=== PATIENT | male | born 2005 | race Caucasian/White ===

== ENCOUNTER 2024-02-13 18:41 | Emergency (ER) | payer OTHER, SELFPAY ==
[2024-02-13 18:42] VITALS: BP 147/70; PULSE 66; RESP 16; TEMP 36.6; O2SAT 97
[2024-02-13] MEDS: Morphine 4 MG/ML Syringe IV (18:53)
--- NOTE | 2024-02-13 18:57 | ED.VIS.LOWEX ---
HPI History of Present Illness HPI Narrative: Patient presents with left knee injury that occurred today. Patient states he was hiking and he slipped in the mud. Patient states his knee twisted. Patient states he was having difficulty straightening his knee after the fall. Patient noted a deformity to the left knee. Patient denies any paresthesias or weakness. Patient describes his pain as sharp. Patient states it is worse with any movement. Patient denies any head injury or loss of consciousness. Patient denies any other injuries. Chief Complaint: Lower Extremity Injury Informant: patient Occured/Mechanism Mechanism/Context: Yes fall Onset/Context/Timing Onset: Today Context: Sudden Onset Timing: Continuous Quality of Pain: Sharp Location: Left knee Worsened by: Movement Relieved by: Rest Associated Symptoms Associated Symptoms: Negative for Parasthesia, Weakness or Loss of Funtion PFSH [facility] Medical History ACL (anterior cruciate ligament) tear Allergies Emotional problems Epileptic seizure ARIEL (generalized anxiety disorder) GERD (gastroesophageal reflux disease) MDD (major depressive disorder) Seizures Home Medications bupropion HCl 150 mg 24 hr tablet, extended release mg PO 01/03/24 [History Last Taken Unknown] lamotrigine 150 mg tablet mg PO 01/03/24 [History Last Taken Unknown] Allergy/AdvReac Type Severity Reaction Status Date / Time No Known Allergies Allergy Verified 01/03/24 13:41 Family History (Updated 01/03/24 @ 13:46 by Marie Elizabeth) Other Alcoholism Anxiety Arthritis Depression Hypertension Mental disorder Severe allergy Social History Smoking Status: Never smoker alcohol intake: current details: at social gatherings substance use type: other details: marked yes does not specify ROS ROS ED Constitutional Constitutional ED: Denies chills or fever(s) Eyes Eyes: Denies blurry vision or change in vision ENT ENT ED: Denies rhinorrhea or sore throat Cardiovascular Cardiovascular: Denies chest pain or palpitations Respiratory/Chest Respiratory/Chest: Denies cough or dyspnea Gastrointestinal Gastrointestinal: Denies nausea or vomiting Genitourinary Genitourinary ED: Denies dysuria or hematuria Musculoskeletal Musculoskeletal: Denies back pain or neck pain Integumentary Denies abscess or rash Neurologic Neurologic: Denies headache(s) or weakness Allergic/Immunologic Allergic/Immunologic ED: Denies mouth swelling or urticaria EXAM Physical Exam Const Vital Signs: 02/13/24 18:42 Temperature 98 F Temperature Source Temporal Pulse Rate 66 Respiratory Rate 16 Blood Pressure 147/70 H Blood Pressure Mean 95 Pulse Ox 97 Oxygen Delivery Method Room Air Positive well nourished and well developed General Appearance ED: well developed and NAD HEENT Reports moist mucous membranes Neck full ROM and supple Extremity Extremity Narrative: There is tenderness and deformity over the left patella. There is minimal tenderness posteriorly over the left knee. Range of motion was limited in all motions of the left knee secondary to pain. Sensation was intact to light touch bilaterally in the lower extremities. Strength is 5/5 bilaterally in the lower extremities. Posterior tibial pulses are equal bilaterally. Neuro oriented x3, CN's II-XII intact bilaterally, moves all extremities and no sensory deficits noted Sensorium / Orientation: alert Motor Exam: strength 5/5 throughout Psych mental status grossly normal MDM MDM MDM Narrative Medical decision making narrative: Clinically, patient has a patella dislocation. Patient was given a dose of morphine. The knee was extended and the patella was reduced. X-rays of the left knee will be obtained to assess for occult fracture and loose body. Radiography Diagnostic Testing: Clinical Impression(s) from Imaging Studies Knee X-Ray 02/13/24 19:00 IMPRESSION: Negative left knee x-rays. Electronically Signed: Bob Siddiqui MD at 19:31 EDT Reading Location ID and State: [facility] / [place] Tel , Service support , X-rays of the left knee were obtained. There are 2 views. On my independent interpretation, there is no acute fracture or dislocation noted. Radiologist also interpreted the x-rays and agrees. Treatment and Re-Evaluation Narrative: Patient was advised of his findings. Patient was given a knee immobilizer. Patient was instructed to ice and elevate the left knee. Patient was instructed to take ibuprofen or Tylenol as needed for pain. Patient was instructed to follow-up with his primary care physician in 5 to 7 days. Patient understood and was agreeable with the plan. All questions were answered. Discharge Plan Triage Chief Complaint: Lower Extremity Injury ED Provider: Norm Dallas Dx/Rx/DC Orders Clinical Impression: Fall, Dislocation of patella, left, closed Instructions: ED Patellar Dislocation/Subluxation Prescriptions: No Action lamotrigine 150 mg tablet PO bupropion HCl 150 mg tablet extended release 24 hr PO Primary Care Provider: Care Physician,No Primary Referrals: Kashif Lubin MD [Med Staff - Principal Clerk] - 5-7 Days Care Physician,No Primary [Primary Care Provider] - Disposition Disposition: Home, Self Care
--- NOTE | 2024-02-13 19:00 | RAD_ITS ---
EXAM: XR LEFT KNEE, 1 OR 2 VIEWS CLINICAL INDICATION: Injury/Pain TECHNIQUE: Frontal and/or lateral views of the left knee. COMPARISON: No relevant prior studies available. FINDINGS: BONES/JOINTS: Unremarkable. No acute fracture. No subluxation. Normal alignment. Preservation of the joint space. No sclerotic or destructive changes observed. SOFT TISSUES: Unremarkable. No soft tissue swelling or gas. No radiopaque foreign body. RAD/Knee 1 or 2 Views IMPRESSION: Negative left knee x-rays. Electronically Signed: Bob Siddiqui MD at 19:31 EDT ,
[2024-02-13 20:02] VITALS: BP 129/74; PULSE 65; RESP 16; TEMP 36.3; O2SAT 99
== END 2024-02-13 20:03 | disposition home or self-care (01) ==
LOC: ED 19:26
PROVIDERS: Emergency Provider Emergency Medicine; Visit Provider Emergency Medicine
DX: S83.005A Unspecified dislocation of left patella, initial encounter (principal); W18.39XA Other fall on same level, initial encounter; Y93.01 Activity, walking, marching and hiking; F41.1 Generalized anxiety disorder; Z79.899 Other long term (current) drug therapy
CPT/HCPCS: 27560; 73560; 96374; 99284; A4216

== ENCOUNTER 2025-02-10 18:00 | Outpatient (RCR) | payer OTHER, SELFPAY ==
--- NOTE | 2024-11-20 15:02 | HP.PTEVAL ---
Patient's Visit Information Visit Information Visit Information: ADALBERTO HOLLIS is a 18 year old M referred to Physical Therapy by BEVERLY MCGREGOR with a diagnosis of L knee trocheoplasty with MPFL reconstruction, DOS: 10/23/24. Date of Evaluation: 11/20/24 Physical Therapist: Corona Ceja DPT Visit Plan Frequency: 1-2x /Week Duration: 12 weeks Plan: 1) quad, HS, glute strengthening 2) once able to complete SLR without quad lag, open brace with gait. After 2 weeks of this wean from brace. 3) progress L knee ROM to 0-0-120deg. Pt. only able to come x1 per week currently. Progress HEP with each visit as able. Further reinforce importance of HEP consistency. Use protocol to progress as able. HEP AT IE: quad sets , SLR with brace, TKE with BTB, chair squats, heel slides with strap Subjective Subjective: Pt. is here today for his initial evaluation with diagnosis of S/P L knee trocheoplasty with MPFL reconstruction, DOS: 10/23/24. Pt. arrives with brace locked in extension and using 1 crutch. Pt. 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 He denies N/T in either LE, no calf pain, or changes in vision. No fever noted. Pt. is a [employer] student and is here for the semester. He reports starting his PT back home, doing initial strengthening and ROM. He reports however since going to college that he has neglected his exercises. 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 Pt. reports still having marked quad weakness. Pt. is hopeful to increase his strength and ROM in order to get back to all recreational and work activities without limitations. pt. is walking on campus with brace locked and with 1 crutch. Pt. is sleeping well without issues. Pain L knee: Pain Intensity (Out of 10): 2 Pain Intensity Range: 0 and 4 Objective Objective: POSTURE: Pt. has increased wt. shift to R side in stance. Pt. has normal iliac crest heights. PALPATION: Pt. has normal healing incision. Pt. has steri strips in place still, trimming back as they fray. NEURO: Pt. has normal sensation and normal achilles DTR. ROM: 0-0-99deg. Pt. reports tightness at limiting factor. Mild knee pain noted. Pt. has full extension no restrictions noted. MMT: LLE: Pt. has a fair quad set, unable to complete SLR without brace. He is able to complete one with brace on, but has marked lag (uses brace to stabilize) GAIT: Pt. ambulates with TROM brace with good stability. With out brace he has slight knee flexion and marked antalgic pattern. Pt. requires TROM brace for stability currently. Balance/Special Test Scores Lower Extremity Functional Score: 34 Goals Goal 1:: LTG: Pt. to be I with HEP. Goal Time Frame: 4-6 Weeks Goal 2:: LTG: Pt. to have increased L knee ROM to 0-0-120deg without increase in symptoms. Goal Time Frame: 2 Weeks Goal 3:: STG: Pt. to complete SLR x10 without brace without extensor lag. Goal Time Frame: 2 Weeks Goal 4:: LTG: Pt. to have symmetrical BLE strength. Goal Time Frame: 6-8 Weeks Goal 5:: LTG: Pt. to be able to ambulate without AD without brace with good stability and good knee positioning. Goal Time Frame: 6-8 Weeks Rehabilitation Potential Physical Therapy Diagnosis: PT. has signs and symptoms consistent with L knee trocheoplasty with MPFL reconstruction, DOS: 10/23/24. Pt. has marked quad weakness, hypomobility, difficulty with walking and decreased functional mobility. He would benefit from PT to address the above limitations progressing back to all previous levels of function. Rehabilitation Potential: Excellent Anticipated Interventions Patient/Client Instruction: Educate patient on: Condition, Plan of Care, Risk Factors and Benefits of Fitness Program For the Purpose of:: To improve health and function, To foster healthy habits, To improve decision making, To facilitate caregiver knowledge, To improve self management, To prevent re-injury and To improve ability to perform tasks related to life management Therapeutic Exercise to Include: Strength training, Power training, Balance training, Postural training, Flexibilty training, Gait and locomotor training, Passive ROM and Active ROM For the Purpose of:: To decrease pain, To decrease swelling/inflammation, To increase ROM, To improve nutrient delivery to tissue, To increase oxygenation perfusion, To improve muscle performance and motor function, To improve ability to perform ADL's, To improve health of tissue, To decrease soft tissue restriction and To increase flexibility/ROM Manual Therapy Techniques to Include: Scar massage and Soft tissue mobilization For the Purpose of:: To decrease pain, To decrease swelling/inflammation, To increase ROM, To improve nutrient delivery to tissue, To increase oxygenation perfusion and To improve muscle performance and motor function IF ES: Yes Cryotherapy (ice pack, ice massage): Yes Vasopneumatic device: Yes For the Purpose of:: To decrease pain, To decrease swelling/inflammation and To increase ROM Text: Thank you for the opportunity to evaluate your patient. For Medicare and Medicare HMO plans, please review the plan of care and approve it. It will need to be FAXED BACK to us at [phone] for Medicare purposes. For Medicare only, by signing this I certify the plan of care. Please let me know if there are questions or concerns regarding this plan of care. Physician Signature: Date:
--- NOTE | 2025-01-07 14:40 | HP.PTREVAL ---
Re-Evaluation Intro: BEVERLY MCGREOGR, It has been my pleasure to treat ADALBERTO HOLLIS over the last 4 visits for L knee trocheoplasty with MPFL reconstruction, DOS: 10/23/24. Please see the progress note below for an update on the physical therapy plan of care! Subjective Subjective: Pt. reports overall doing better. He is no longer using his brace. He reports being compliant with his exsercises 50% of the time. Pt. reports no pain currently. Objective Objective/Function: MMT: SLR x20 without lag L knee: ext 22.9#, flexion 17.8#. R knee: ext 48.7#, abd flexion 27.3#. gait: normal pattern noted ROM: L knee 0-0-118deg. Adalberto continues to have some strength and ROM deficits. I would really like him to be consistent with his exercises. He does have some marked strength deficits and would benefit from working on these to increase stability of his L knee. Plan Plan Plan: I would like him to continue with PT. Cont. to work on strengthening and ROM. Balance/Gait/Functional tests Balance/Special Test Scores Lower Extremity Functional Score: 34 Goals Goals Goal 1:: LTG: Pt. to be I with HEP. Goal Time Frame: 4-6 Weeks Goal Progress: Progressing Goal 2:: LTG: Pt. to have increased L knee ROM to 0-0-120deg without increase in symptoms. Goal Time Frame: 2 Weeks Goal Progress: Progressing Goal 3:: STG: Pt. to complete SLR x10 without brace without extensor lag. Goal Time Frame: 2 Weeks Goal Progress: Goal Met Goal 4:: LTG: Pt. to have symmetrical BLE strength. Goal Time Frame: 6-8 Weeks Goal Progress: Progressing Goal 5:: LTG: Pt. to be able to ambulate without AD without brace with good stability and good knee positioning. Goal Time Frame: 6-8 Weeks Goal Progress: Goal Met Anticipated Interventions Anticipated Interventions Patient/Client Instruction: Educate patient on: Condition, Plan of Care, Risk Factors and Benefits of Fitness Program For the Purpose of:: To improve health and function, To foster healthy habits, To improve decision making, To facilitate caregiver knowledge, To improve self management, To prevent re-injury and To improve ability to perform tasks related to life management Therapeutic Exercise to Include: Strength training, Power training, Balance training, Postural training, Flexibilty training, Gait and locomotor training, Passive ROM and Active ROM For the Purpose of:: To decrease pain, To decrease swelling/inflammation, To increase ROM, To improve nutrient delivery to tissue, To increase oxygenation perfusion, To improve muscle performance and motor function, To improve ability to perform ADL's, To improve health of tissue, To decrease soft tissue restriction and To increase flexibility/ROM Manual Therapy Techniques to Include: Scar massage and Soft tissue mobilization For the Purpose of:: To decrease pain, To decrease swelling/inflammation, To increase ROM, To improve nutrient delivery to tissue, To increase oxygenation perfusion and To improve muscle performance and motor function IF ES: Yes Cryotherapy (ice pack, ice massage): Yes Vasopneumatic device: Yes For the Purpose of:: To decrease pain, To decrease swelling/inflammation and To increase ROM Re-Evaluation Ending Re-evaluation ending: Please do not hesitate to contact me at [phone] by phone or if you have questions or concerns regarding this new plan of care! Sincerely, Corona Ceja DPT
== END 2025-02-10 19:00 | disposition home or self-care (01) ==
LOC: PT 18:00
DX: M25.362 Other instability, left knee (principal); Z47.89 Encounter for other orthopedic aftercare
CPT/HCPCS: 97110; 97161; 97530